=== PATIENT | female | born 1960 | race Caucasian/White ===

== ENCOUNTER 2016-12-18 14:09 | Emergency (ER) | payer MEDICARE, MEDICAID ==
[~2016-12-18] VITALS: Ht 177.8 cm; Wt 96.3 kg
[2016-12-18 15:16] VITALS: BP 119/77
== END 2016-12-18 16:13 | disposition home or self-care (01) ==
LOC: ED 16:09
DX: S86.112A Strain of other muscle(s) and tendon(s) of posterior muscle group at lower leg level, left leg, initial encounter (principal); X58.XXXA Exposure to other specified factors, initial encounter; F17.200 Nicotine dependence, unspecified, uncomplicated; Y93.89 Activity, other specified; Y92.89 Other specified places as the place of occurrence of the external cause; Y99.8 Other external cause status
CPT/HCPCS: 99284

== ENCOUNTER 2018-01-31 01:23 | Emergency (ER) | payer MEDICARE, MEDICAID ==
[~2018-01-31] VITALS: Ht 177.8 cm; Wt 90.0 kg
[2018-01-31 01:26] VITALS: BP 147/87
== END 2018-01-31 04:09 | disposition home or self-care (01) ==
LOC: ED 04:04
DX: S52.125A Nondisplaced fracture of head of left radius, initial encounter for closed fracture (principal); F17.210 Nicotine dependence, cigarettes, uncomplicated; W01.0XXA Fall on same level from slipping, tripping and stumbling without subsequent striking against object, initial encounter; Y93.89 Activity, other specified; Y92.009 Unspecified place in unspecified non-institutional (private) residence as the place of occurrence of the external cause; Y99.8 Other external cause status
CPT/HCPCS: 29105; 99284

== ENCOUNTER → 2019-12-24 | Outpatient (CLI) | payer MEDICARE, MEDICAID ==
[2019-12-24 12:15] LABS: MICROSCOPIC NOT IND
[2019-12-24 12:16] LABS: BASOPHILS # (AUTO) 0.04 x10^3/uL (0-0.1); BASOPHILS % (AUTO) 1 % (0-1); EOSINOPHILS # (AUTO) 0.52 x10^3/uL (0-0.4); EOSINOPHILS % (AUTO) 6 % (1-7); LYMPHOCYTES # (AUTO) 1.48 x10^3/uL (1-3.4); LYMPHOCYTES % (AUTO) 18 % (22-44); MD NO; MEAN CORPUSCULAR HEMOGLOBIN 29.7 pg (27.0-34.8); MEAN CORPUSCULAR HGB CONC 33.4 g/dL (32.4-35.8); MEAN CORPUSCULAR VOLUME 88.9 fL (80-100); MEAN PLATELET VOLUME 7.7 fL (7.4-10.4); MONOCYTES # (AUTO) 0.67 x10^3/uL (0.2-0.8); MONOCYTES % (AUTO) 8 % (2-9); NEUTROPHILS # (AUTO) 5.67 x10^3/uL (1.8-6.8); NEUTROPHILS % (AUTO) 68 % (42-75); PLATELET COUNT 328 x10^3/uL (130-400); RED BLOOD COUNT 4.64 x10^6/uL (3.82-5.3); RED CELL DISTRIBUTION WIDTH 13.5 % (9.6-15.2)
== END | disposition home or self-care (01) ==
LOC: STAR 11:08
PROVIDERS: ATTEND Orthopaedic Surgery
DX: Z01.818 Encounter for other preprocedural examination (principal); M17.11 Unilateral primary osteoarthritis, right knee
CPT/HCPCS: 36415; 81003; 85025; 87081; 87147; 87806; 93005; G0475

== ENCOUNTER 2019-12-28 05:47 | Outpatient (CLI) | payer MEDICARE, MEDICAID ==
[~2019-12-28] VITALS: Ht 177.8 cm; Wt 100.6 kg
[2019-12-28] MEDS ORDERED: VANCOMYCIN PMX 1GM/200ML 200 ML IV STA (06:03)
[2019-12-28 06:25] VITALS: BP 113/78
[2019-12-28] MEDS ORDERED: LACTATED RINGERS 1,000 ML IV SCH (06:29)
[2019-12-28] MEDS ORDERED: CHLORHEXIDINE 15 ML UDC MM ONE (06:30)
[2019-12-28] MEDS ORDERED: FENTANYL PF 250 MCG/5ML ONE (06:33)
[2019-12-28] MEDS ORDERED: PROPOFOL 10 MG/ML, 20ML ONE (06:37)
[2019-12-28] MEDS ORDERED: LIDOCAINE-MPF 2% ,5ML ONE (06:37)
[2019-12-28] MEDS ORDERED: CEFAZOLIN 1,000 MG ONE ×3 (06:37)
== END 2019-12-28 23:59 | disposition home or self-care (01) ==
LOC: OUT 05:47 → EDSTATUS 07:30 → OUT 23:59
PROVIDERS: ATTEND Orthopaedic Surgery
DX: M17.11 Unilateral primary osteoarthritis, right knee (principal); Z53.8 Procedure and treatment not carried out for other reasons; Z11.59 Encounter for screening for other viral diseases; F17.210 Nicotine dependence, cigarettes, uncomplicated; Z79.899 Other long term (current) drug therapy; Z72.89 Other problems related to lifestyle; Z85.3 Personal history of malignant neoplasm of breast
CPT/HCPCS: J0690; U0001; J2704; J3010

== ENCOUNTER → 2020-02-11 | Outpatient (CLI) | payer MEDICARE, MEDICAID ==
[~2020-02-11] MED LIST: None at this Time
[2020-02-11 15:12] LABS: BASOPHILS # (AUTO) 0.04 x10^3/uL (0-0.1); BASOPHILS % (AUTO) 0 % (0-1); EOSINOPHILS # (AUTO) 0.69 x10^3/uL (0-0.4); EOSINOPHILS % (AUTO) 7 % (1-7); LYMPHOCYTES # (AUTO) 1.78 x10^3/uL (1-3.4); LYMPHOCYTES % (AUTO) 19 % (22-44); MD NO; MEAN CORPUSCULAR HEMOGLOBIN 29.8 pg (27.0-34.8); MEAN CORPUSCULAR HGB CONC 33.2 g/dL (32.4-35.8); MEAN CORPUSCULAR VOLUME 89.6 fL (80-100); MEAN PLATELET VOLUME 8.2 fL (7.4-10.4); MONOCYTES # (AUTO) 0.56 x10^3/uL (0.2-0.8); MONOCYTES % (AUTO) 6 % (2-9); NEUTROPHILS # (AUTO) 6.36 x10^3/uL (1.8-6.8); NEUTROPHILS % (AUTO) 68 % (42-75); PLATELET COUNT 335 x10^3/uL (130-400); RED BLOOD COUNT 4.71 x10^6/uL (3.82-5.3); RED CELL DISTRIBUTION WIDTH 13.5 % (9.6-15.2)
[2020-02-11 15:17] LABS: MICROSCOPIC NOT IND
== END | disposition home or self-care (01) ==
LOC: STAR 14:15
PROVIDERS: ATTEND Orthopaedic Surgery
DX: Z01.818 Encounter for other preprocedural examination (principal); Z11.59 Encounter for screening for other viral diseases; M17.11 Unilateral primary osteoarthritis, right knee
CPT/HCPCS: 36415; 81003; 85025; 87081; 87147; 87635; 87806; 93005; G0475

== ENCOUNTER 2020-02-15 05:39 | Observation (INO) | payer MEDICARE, MEDICAID ==
[~2020-02-15] VITALS: Ht 177.8 cm; Wt 107.1 kg
[2020-02-15] MEDS ORDERED: VANCOMYCIN PMX 1GM/200ML 200 ML IV ONE (06:00)
[2020-02-15] MEDS ORDERED: CHLORHEXIDINE 15 ML UDC MM STA (06:05)
[2020-02-15] MEDS ORDERED: TRANEXAMIC ACID 100 MG/ML, 10ML ONE (06:34)
[2020-02-15] MEDS ORDERED: EPINEPHRINE 1 MG/ML, 1ML ONE (06:34)
[2020-02-15] MEDS ORDERED: KETOROLAC 60 MG/2 ML ONE (06:34)
[2020-02-15] MEDS ORDERED: ROPIvacaine/PF 0.2%, 20 ML ONE (06:34)
[2020-02-15] MEDS ORDERED: SODIUM CHLORIDE 0.9% 50 ML ONE (06:34)
[2020-02-15] MEDS ORDERED: morphine SULFATE/PF 1 MG/ML, 10ML ONE (06:34)
[2020-02-15] MEDS ORDERED: BACITRACIN 50,000 UNIT ONE (06:35)
[2020-02-15] MEDS ORDERED: LACTATED RINGERS 1,000 ML IV SCH (06:45)
[2020-02-15] MEDS ORDERED: MIDAZOLAM 1 MG/ML, 2ML ONE (07:00)
[2020-02-15] MEDS ORDERED: FENTANYL PF 250 MCG/5ML ONE (07:00)
[2020-02-15] MEDS ORDERED: DEXAMETHASONE 4 MG/ML, 1ML ONE (07:30)
[2020-02-15] MEDS ORDERED: CEFAZOLIN PMX 2GM/100ML ONE (07:30)
[2020-02-15] MEDS ORDERED: SUCCINYLCHOLINE 20 MG/ML, 10ML ONE (07:30)
[2020-02-15] MEDS ORDERED: ROCURONIUM 10 MG/ML,10ML ONE (07:30)
[2020-02-15] MEDS ORDERED: PROPOFOL 10 MG/ML, 100ML IV ONE (07:30)
[2020-02-15] MEDS ORDERED: ONDANSETRON 2MG/ML, 2ML ONE (07:30)
[2020-02-15] MEDS ORDERED: VANCOMYCIN 1,000 MG ONE (07:31)
[2020-02-15] MEDS: D5%-0.45% NACL 1,000 ML IV SCH ×2 (07:41→19:30)
[2020-02-15] MEDS ORDERED: morphine SULFATE 10 MG/ML, 1ML IVPush PRN (08:00)
[2020-02-15] MEDS ORDERED: ONDANSETRON 2MG/ML, 2ML IVPush PRN ×2 (08:00→08:30)
[2020-02-15] MEDS ORDERED: VANCOMYCIN PMX 1GM/200ML 200 ML IVPB ONE (08:00)
[2020-02-15] MEDS ORDERED: TRANEXAMIC ACID 1,000 MG in SODIUM CHLORIDE 0.9% 100 ML IV ONE (08:00)
[2020-02-15] MEDS ORDERED: LORazepam 2 MG/ML, 1ML IVPush PRN (08:00)
[2020-02-15] MEDS ORDERED: DIPHENHYDRAMINE 50 MG CAPSULE PO PRN (08:00)
[2020-02-15] MEDS ORDERED: ACETAMINOPHEN 325 MG TABLET PO PRN (08:00)
[2020-02-15] MEDS ORDERED: ZOLPIDEM 5MG TABLET PO PRN (08:00)
[2020-02-15] MEDS ORDERED: LABETALOL 5MG/ML, 20ML IV PRN (08:30)
[2020-02-15] MEDS ORDERED: ALBUTEROL SULFATE 2.5 MG/3 ML NPPB PRN (08:30)
[2020-02-15] MEDS ORDERED: HYDROmorphone 1 MG/ML, 1ML INJ IV PRN (08:30)
[2020-02-15] MEDS ORDERED: hydrALAzine 20 MG/ML, 1ML IV PRN (08:30)
[2020-02-15] MEDS ORDERED: DIAZEPAM 5 MG/ML, 2ML IV PRN ×2 (08:30)
[2020-02-15] MEDS ORDERED: KETOROLAC 30 MG/1 ML IV PRN (08:30)
[2020-02-15] MEDS ORDERED: METOCLOPRAMIDE 5 MG/ML, 2ML IV PRN (08:30)
[2020-02-15] MEDS ORDERED: PROMETHAZINE 25 MG/ML, 1ML IV PRN (08:30)
[2020-02-15] MEDS ORDERED: OXYcodone 5 MG/5 ML ORAL.SOL UDC PO PRN (08:30)
[2020-02-15] MEDS ORDERED: MEPERIDINE/PF 25MG/0.5ML IVPush PRN (08:30)
[2020-02-15] MEDS ORDERED: ACETAMINOPHEN 650 MG/20.3 ML UDC ONE (09:58)
[2020-02-15] MEDS ORDERED: FENTANYL PF 100 MCG/2ML ONE ×2 (09:58→10:35)
[2020-02-15] MEDS ORDERED: OXYcodone 5 MG/5 ML ORAL.SOL UDC ONE (09:59)
[2020-02-15] MEDS ORDERED: ACETAMINOPHEN 650 MG/20.3 ML UDC PO PRN (10:00)
[2020-02-15] MEDS: FENTANYL PF 100 MCG/2ML IV PRN ×4 (10:01→10:45)
[2020-02-15 11:36] VITALS: BP 135/84
[2020-02-15] MEDS: OXYcodone/APAP 7.5/325MG TABLET PO PRN ×3 (13:57→22:30)
[2020-02-15 14:10] VITALS: BP 113/75
[2020-02-15] MEDS: CEFAZOLIN PMX 2GM/50ML 50 ML IVPB SCH ×2 (15:51→23:59)
[2020-02-15 19:28] VITALS: BP 93/60
[2020-02-15 23:22] VITALS: BP 104/68
[2020-02-16] MEDS: D5%-0.45% NACL 1,000 ML IV SCH ×3 (00:30→09:33)
[2020-02-16 03:46] VITALS: BP 89/49
[2020-02-16] MEDS: OXYcodone/APAP 7.5/325MG TABLET PO PRN ×3 (05:29→13:24)
[2020-02-16] MEDS ORDERED: VANCOMYCIN 1,000 MG in SODIUM CHLORIDE 0.9% 100 ML IVPB ONE (08:00)
[2020-02-16] MEDS ORDERED: ASPIRIN 325 MG TABLET EC PO SCH (08:00)
[2020-02-16] MEDS: CEFAZOLIN PMX 2GM/50ML 50 ML IVPB SCH (08:15)
[2020-02-16 08:16] VITALS: BP 96/64
[2020-02-16] MEDS ORDERED: DOCUSATE 100 MG CAPSULE PO SCH (09:00)
[2020-02-16 13:45] VITALS: BP 103/63
[2020-02-16] MEDS ORDERED: OXYC-306 PO (14:08)
== END 2020-02-16 14:33 | disposition home or self-care (01) ==
LOC: OUT 05:39 → 4NE 11:03 → OUT 11:20 → DCLOUNGE 02-16 14:24
PROVIDERS: ADMIT Orthopaedic Surgery; ATTEND Orthopaedic Surgery
DX: M17.11 Unilateral primary osteoarthritis, right knee (principal); K21.9 Gastro-esophageal reflux disease without esophagitis; J45.909 Unspecified asthma, uncomplicated; F19.10 Other psychoactive substance abuse, uncomplicated; F17.200 Nicotine dependence, unspecified, uncomplicated; Z79.899 Other long term (current) drug therapy
CPT/HCPCS: 27447; 36415; 73564; 85018; 96365; 96366; 96367; 97110; 97161; 97165; C1713; C1776; G0378; J0171; J0330; J0690; J1100; J1885; J2250; J2274; J2405; J2704; J2795; J3010; J3370; J7120